=== PATIENT | female | born 1985 ===

== ENCOUNTER 2025-04-08 18:03 | Outpatient (REF) | payer OTHER, SELFPAY ==
--- OUTSIDE RECORDS SUMMARY | 2025-04-08 09:30 | XMS_ITS | Encounter Summary ---
Author Organization [email or web address] Address [address] [facility] [address] [facility] [address] [facility] [address] [place] [address] Care Team Providers Care Firefighting Equipment Specialist Name Role Phone Lisa Curry NP Primary Care Provider [phone] Reason for Visit * Reason Comments New patient Encounter Details Date Type Department Care Team ([facility] st Contact Info) Description 04/08/2025 9:30 AM EST Office Visit [facility] MED[facility]INE [address] [place] [address] Lisa Curry NP [address] [place] [address] Encounter to establish care with new provider (Primary Dx); Chronic migraine without aura without status migrainosus, not intractable; Vaginal bleeding; Palpitations; Menorrhagia with regular cycle; History of tuberculosis Social History Tobacco Use Types Packs/Day Years Used Date Smoking Tobacco: Never Passive Smoke Exposure: Never Smokeless Tobacco: Never Alcohol Use Standard Drinks/Week Comments Never 0 (1 standard drink = 0.6 oz pur e alcohol) Alcohol Answer Date Recorded How often do you have a drink containing alcohol ? 1 04/08/2025 How many drinks containing a lcohol do you have on a typical day when you are drinking? 0 04/08/2025 How often do you have six or more drinks on one occasion? 0 04/08/2025 Depression Answer Date Recorded Patient Health Questionnaire-9 Score 0 04/08/2025 Patient Health Questionnaire-9 Score 0 04/08/2025 Last PHQ-9: Questionnaire Data Not on file 1 06/08/2024 Housing Stability Answer Date Recorded What is your housing situation today? I have katlin singleton 04/08/[address] you li ve. Do you have problems with any of the following? Pests such as bugs, ants, or mice 04/08/2025 Food Insecurity Answer Date Recorded Within the past 12 months, y ou worried that your food would run out before you got money to buy more: Never True 04/08/2025 Within the past 12 months,th e food you bought just didn't last and you didn't have enough money to get more: Never True Transportation Answer Date Recorded In the past 12 months, has l ack of transportation kept you from medical appts, meetings, work or from getting things needed for daily living? No 04/08/2025 Utilities Answer Date Recorded In the past 12 months, has t he electric, gas, oil or water company threatened to shut off services in your home? No 04/08/2025 Depression Answer Date Recorded Patient Health Questionnaire-2 Score 0 04/08/2025 Internet Access Answer Date Recorded Internet Access Q1 Yes 04/08/2025 Internet Access Q2 Not on file 04/08/2025 Comments Unknown Sex and Gender Information Value Date Recorded Sex Assigned at Female 05/17/2022 1:03 PM EST Legal Sex Female 3:07 PM EST Gender Identity Female 05/17/2022 1:03 PM EST Sexual Orientation Straight 07/20/2022 4: 38 PM EST Occupation Industry Job Start Date Job End Date Not on file Not on file Not on file Not on file documented as of this encounter Last Filed Vital Signs Vital Sign Reading Time Taken Comments Blood Pressure 120/82 04/08/2025 9:29 AM EST Pulse 92 04/08/2025 9:29 AM EST Temperature 37.6 C (99.6 F) 04/08/2025 9:29 AM EST Respiratory Rate 23 04/08/2025 9:29 AM EST Oxygen Saturation 99% 04/08/2025 9:29 AM EST Inhaled Oxygen Concentration - - Weight 71.5 kg (157 lb 9.6 oz) 04/08/2025 9:29 A M EST Height 154.9 cm (5' 1 ) 04/08/2025 9:29 AM EST Body Mass Index 29.78 04/08/2025 9:29 AM EST documented in this encounter Functional Status * Over the past 2 weeks, how often have you been bothered by any of the following problems? Question Answer Date of Assessment Author Patient Health Questionnaire -2 Score 0 04/08/2025 10:59 AM John Paul De Leon MA * Little interest or pleasure in doing things Answer Date of Assessment Author Not at all 04/08/2025 10:59 AM John Paul De Leon MA * Feeling down, depressed, or hopeless Answer Date of Assessment Author Not at all 04/08/2025 10:59 AM John Paul De Leon MA * Trouble falling or staying asleep, or sleeping too much Answer Date of Assessment Author Not at all 04/08/2025 10:59 AM John Paul De Leon MA * Feeling tired or having little energy Answer Date of Assessment Author Not at all 04/08/2025 10:59 AM John Paul De Leon MA * Poor appetite or overeating Answer Date of Assessment Author Not at all 04/08/2025 10:59 AM John Paul De Leon MA * Feeling bad about yourself - or that you are a failure or have let yourself or your family down Answer Date of Assessment Author Not at all 04/08/2025 10:59 AM John Paul De Leon MA * Trouble concentrating on things, such as reading the newspaper or watching television Answer Date of Assessment Author Not at all 04/08/2025 10:59 AM John Paul De Leon MA * Moving or speaking so slowly that other people could have noticed? Or the opposite - being so fidgety or restless that you have been moving around a lot more than usual. Answer Date of Assessment Author Not at all 04/08/2025 10:59 AM John Paul De Leon MA * Thoughts that you would be better off or hurting yourself in some way Answer Date of Assessment Author Not at all 04/08/2025 10:59 AM John Paul De Leon MA * Patient Health Questionnaire-9 Score Answer Date of Assessment Author 0 04/08/2025 10:59 AM John Paul De Leon MA * Over the last 2 weeks, how often have you been bothered by any of the following problems? Question Answer Date of Assessment Author Feeling nervous, anxious, or on edge 0 04/08/2025 10:58 AM John Paul De Leon MA Not being able to stop or co ntrol worrying 0 04/08/2025 10:58 AM John Paul De Leon MA Worrying too much about diff erent things 0 04/08/2025 10:58 AM John Paul De Leon MA Trouble relaxing 0 04/08/2025 10:58 AM John Paul De Leon MA Being so restless that it is hard to sit still 0 04/08/2025 10:58 AM John Paul De Leon MA Becoming easily annoyed or irritable 0 04/08/2025 10:58 AM John Paul De Leon MA Feeling afraid as if somethi ng awful might happen 1 04/08/2025 10:58 AM John Paul De Leon MA SERGIO-7 Total Score 1 04/08/2025 10:58 AM John Paul De Leon MA documented as of this encounter Progress Notes * Lisa Curry NP - 04/08/2025 9:30 AM EST Subjective Patient ID: Cherelle Weiner is a 39 y.o. female who presents for new patient visit. Denies recent illness, injury or hospitalization. Previous PCP [facility], [place], [place]. HPI Cherelle is here to establish care. Has several complaints as she has not received primary care in some time. Patient understands not all complaints can be addressed today Concerns: 1) Headaches: light bothers, sounds bother; frontal or temporal; nausea, no vomiting; rates greaterthan 10. Occurs at random, sometimes before or after monthly. Denies visual disturbance, or confusion with theadaches. Was once prescribed amitriptyline which she is unsure if helpful as she still had headaches when taking. Took med short term before becoming and discontinuing the med. Tylenol or ibuprofen does not help 2) Experiences palpitations at times. Ongoing for some time now. 3) Wants full check up due to lack of care following incomplete TB treatment 4) Notes blood on toilet paper with wiping that started 4 days ago; no sexual intercourse in several months Was being treated for latent TB but stopped when she was and moved here. PMHx: Medical History[1] PsurgHX: Surgical History[2] Allergies: Allergies[3] Medication: see reviewed list Social Hx: Tobacco Use: Low Risk (04/08/2025) Tobacco Smoking Tobacco Use: Never Smokeless Tobacco Use: Never Passive Exposure: Never Alcohol Use: Not At Risk (04/08/2025) Alcohol Frequency of Alcohol Consumption: 1 Average Number of Drinks: 0 Frequency of Binge Drinkin Living situation: lives with father, and 4 children Employment/Education: works at [employer] Diet: traditional foods; fried foods; drinks soda, water Exercise: sedentary Substance use: denies Sexual activity: Male partner Last period: Patient's last menstrual period was 03/28/2025 (exact date). Heavy, clots; 3 pads in 8hrs control method: none OB Hx: OB History Para Term AB Living 4 0 0 0 0 4 SAB IAB Ectopic Multiple Live Births 0 0 0 0 0 Mental health: good Routine Health Maintenance Optometry: denies vision disturbance; has itchy eyes; no recent eye exam Dental: not established with dental home. Brushes two or three times per day Cervical CA: reports last pap 2023; unsure of results; Kaitlyn Swartz Outstanding IZ: immunization record to be obtained Family History[4] Review of Systems Constitutional: Negative. Negative for chills and fever. Respiratory: Negative for chest tightness and shortness of breath. Cardiovascular: Positive for palpitations. Negative for chest pain. Gastrointestinal: Negative for abdominal pain, constipation, diarrhea and nausea. Genitourinary: Positive for vaginal bleeding. Negative for dysuria. Musculoskeletal: Negative for arthralgias, back pain, myalgias and neck pain. Skin: Negative. Negative for rash. Neurological: Positive for headaches. Negative for weakness and light-headedness. Psychiatric/Behavioral: Negative for behavioral problems, confusion, decreased concentration and suicidal ideas. Objective: Visit Vitals BP 120/82 (BP Location: Left arm, Patient Position: Sitting, BP Cuff Size: Large adult) Pulse 92 Temp 99.6 ??F (37.6 ??C) (Oral) Resp 23 Ht 5' 1 (1.549 m) Wt 157 lb 9.6 oz (71.5 kg) LMP 03/28/2025 (Exact Date) SpO2 99% BMI 29.78 kg/m?? OB Status Unknown Smoking Status Never BSA 1.75 m?? Problem List[5] Current Medications[6] There is no immunization history on file for this patient. Physical Exam Vitals reviewed. Constitutional: General: She is not in acute distress. Appearance: Normal appearance. She is not ill-appearing. HENT: Head: Normocephalic and atraumatic. Right Ear: External ear normal. Left Ear: External ear normal. Nose: Nose normal. Eyes: General: No scleral icterus. Extraocular Movements: Extraocular movements intact. Cardiovascular: Rate and Rhythm: Normal rate and regular rhythm. Pulses: Normal pulses. Heart sounds: Normal heart sounds. Pulmonary: Effort: Pulmonary effort is normal. No respiratory distress. Breath sounds: Normal breath sounds. Musculoskeletal: General: Normal range of motion. Cervical back: Normal range of motion. Neurological: General: No focal deficit present. Mental Status: She is alert and oriented to person, place, and time. Gait: Gait normal. Psychiatric: Mood and Affect: Mood normal. Behavior: Behavior normal. Assessment & Plan Encounter to establish care with new provider -patient is new to [facility] -personal medical, surgical, and medication histories reviewed along with family hx -routine health maintenance discussed - will obtain and review medical record from previous care facility Chronic migraine without aura without status migrainosus, not intractable -headache description suggestive of migraine -discussed trial of sumatriptan with naproxen -patient is agreeable to amitriptyline for prevention -headache red flags discussed: report to ED immediately if headache characteristics intensify within 5 mins of onset, if associated with intense nausea and vomiting or confusion -recommend headache diary -follow-up 1 month Orders: SUMAtriptan (Imitrex) 25 MG tablet; Take 1 tablet (25 mg) by mouth 1 (one) time if needed for migraine. May repeat dose once in 2 hours if no relief. Do not exceed 2 doses in 24 hours. naproxen (Naprosyn) 500 MG tablet; Take 1 tablet (500 mg) by mouth 2 times daily. amitriptyline (Elavil) 10 MG tablet; Take 1 tablet (10 mg) by mouth at bedtime. Vaginal bleeding Orders: Bacterial Vaginosis, Yeast and Trich; Future Chlamydia/N. Gonorrhoeae RNA, TMA, Vagina Palpitations -labs ordered for work up -further evaluation at follow-up Menorrhagia with regular cycle -will evaluate further at follow-up History of tuberculosis -incomplete treatment for latent TB by ID at previous care center -will determine need for further treatment following MR review Follow-up: 1 month or sooner as needed Belarusian Creole Translation: Provided by [facility] staff member Rosetta [1] Past Medical History: Diagnosis Date Headache Helicobacter pylori gastritis 2021 completed treatment Latent tuberculosis 2022 [2] Past Surgical History: Procedure Laterality Date SECTION, CLASSIC 2023 [3] No Known Allergies [4] Family History Problem Relation Name Age of Onset No Known Problems Mother No Known Problems Father [5] Patient Active Problem List Diagnosis Headache [6] Current Outpatient Medications: amitriptyline (Elavil) 10 MG tablet, Take 1 tablet (10 mg) by mouth at bedtime., Disp: 30 tablet, Rfl: 2 naproxen (Naprosyn) 500 MG tablet, Take 1 tablet (500 mg) by mouth 2 times daily., Disp: 60 tablet,Rfl: 1 SUMAtriptan (Imitrex) 25 MG tablet, Take 1 tablet (25 mg) by mouth 1 (one) time if needed for migraine. May repeat dose once in 2 hours if no relief. Do not exceed 2 doses in 24 hours., Disp: 9 tablet, Rfl: 1 documented in this encounter Plan of Treatment Upcoming Encounters Date Type Department Care Team (Late st Contact Info) Description 05/06/2025 9:15 AM EST Office Visit [facility] MEDICINE [address] [place] [address] Lisa Curry NP [address] [place] [address] Scheduled Orders Name Type Priority Associated Diagnoses Orde r Schedule Bacterial Vaginosis, Yeast and Trich Microbiology Routine Vaginal bleeding Expected: 04/08/2025 (Approximate), Expires: 04/08/2026 Chlamydia/N. Gonorrhoeae RNA, TMA, Vagina Microbiology Routine Vaginal bleeding Ordered: 04/08/2025 CBC auto differential Lab Routine Palpitations Menorrhagia with regular cycle Expected: 04/08/2025 (Approximate), Expires: 04/08/2026 TSH W/Reflex to FT4 Lab Routine Palpitations Menorrhagia with regular cycle Expected: 04/08/2025 (Approximate), Expires: 04/08/2026 documented as of this encounter Visit Diagnoses Diagnosis Encounter to establish care with new provider- Primary Chronic migraine without aura without status migrainosus, not intractable Vaginal bleeding Other specified noninflammatory disorder of vagina Palpitations Menorrhagia with regular cycle History of tuberculosis Personal history of tuberculosis documented in this encounter Additional Health Concerns Assessment Noted Time PHQ-9 Depression Total Score: 0 04/08/20 10:59 AM EST documented as of this encounter Care Teams Firefighting Equipment Specialist Relationship Specialty Start Date End Date Lisa Curry NP [address] [place] [id number] PCP - General Family Medicine 04/08/25 documented as of this encounter
--- OUTSIDE RECORDS SUMMARY | 2025-04-08 19:02 | XMS_ITS | Encounter Summary ---
Author Organization [employer] Address [address] [place] [address] Care Team Providers Care Stab Setter And Driller Name Role Phone Lisa Curry NP Primary Care Provider [phone] Encounter Details Date Type Department Care Team (Latest Contact Info) Description 04/08/2025 Travel Social History Tobacco Use Types Packs/Day Years [...] on file documented as of this encounter Functional Status * Over the [...] Leon MA documented as of this encounter Plan of Treatment Upcoming Encounters Date Type Department Care Team (Late st Contact Info) Description 05/06/2025 9:15 AM EST Office Visit [facility] [address] [place] [address] Lisa Curry NP [address] [place] [address] documented as of this encounter Visit Diagnoses Not on filedocumented in this encounter Additional Health Concerns Assessment Noted Time PHQ-9 Depression Total Score: 0 04/08/20 10:59 AM EST documented as of this encounter Care Teams Stab Setter And Driller Relationship Specialty Start Date End Date Lisa Curry NP [address] [place] [address] PCP - General Family Medicine 04/08/25 documented as of this encounter
--- OUTSIDE RECORDS SUMMARY | 2025-04-08 19:03 | XMS_ITS | Clinical Summary ---
Author Organization [employer] Address [address] [facility] [address] [place] [address] Care Team Providers Care Board Of Directors Name Role Phone Lisa Curry NP Primary Care Provider [phone] Allergies No known active allergies Medications SUMAtriptan (Imitrex) 25 MG tabletIndicatio ns:Chronic migraine without aura without status migrainosus, not intractable Take 1 tablet (25 mg) by mouth 1 (one) time if needed for migraine. May repeat dose once in 2 hours if no relief. Do not exceed 2 doses in 24 hours. 9 tablet 1 04/08/2025 12:09 PM EST 04/08/20 25 Active naproxen (Naprosyn) 500 MG tabletIndicatio ns:Chronic migraine without aura without status migrainosus, not intractable Take 1 tablet (500 mg) by mouth 2 times daily. 60 tablet 1 04/08/2025 12:09 PM EST 04/08/20 25 026 Active amitriptyline (Elavil) 10 MG tabletIndicatio ns:Chronic migraine without aura without status migrainosus, not intractable Take 1 tablet (10 mg) by mouth at bedtime. 30 tablet 2 04/08/2025 12:09 PM EST 04/08/20 25 026 Active amitriptyline (Elavil) 10 MG tabletIndicatio ns:Migraine without aura and without status migrainosus, not intractable Take 1 tablet (10 mg) by mouth at bedtime. 30 tablet 2 08/23/2022 1:47 PM EDT 08/23/19 23 025 Discontinued(Re order (will not trigger notification to Pharmacy)) Active Problems Problem Noted Date Diagnosed Date Headache 05/17/2022 Encounters Date Type Department Care Team Description 04/08/2025 9:30 AM EST Office Visit [facility] MEDICINE [address] [place] [address] Lisa Curry NP Encounter to establish care with new provider (Primary Dx); Chronic migraine without aura without status migrainosus, not intractable; Vaginal bleeding; Palpitations; Menorrhagia with regular cycle; History of tuberculosis 04/08/2025 Travel 04/01/2025 Patient Outreach [facility] [address] [place] [address] Debra Oconnor NP Pre-visit Planning ([facility] unable to reach [facility] ) from Last 3 Months Family History Medical History Relation Name Comments No Known Problems Father No Known Problems Mother Relation Name Status Comments Father Alive Mother Alive Social History Tobacco Use Types Packs/Day Years Used Date Smoking Tobacco: Never Passive Smoke Exposure: Never Smokeless Tobacco: Never Tobacco Cessation:Counseling Given: Not Answered Alcohol Use Standard Drinks/Week Comments Never 0 [...] file Not on file Not on file Last Filed Vital Signs Vital Sign Reading [...] Mass Index 29.78 04/08/2025 9:29 AM EST Plan of Treatment Upcoming Encounters Date Type Department Care Team (Late st Contact Info) Description 05/06/2025 9:15 AM EST Office Visit [facility] MED[facility] [address] [place], [place] [phone] Lisa Curry NP [address] [place] [address] Health Maintenance Due Date Last Done Comments Family Planning (PISQ) 10/01/2002 HPV Vaccines (1 - 3-dose series) 10/01/2002 DTaP/Tdap/Td Vaccines (1 - Tdap) 10/01/2006 Hepatitis B Vaccines (1 of 3 - 19+ 3-dose series) 10/01/2006 Pap Smear 10/01/2008 Cervical Cancer Screening 10/01/2017 HPV/Cotest 10/01/2017 COVID-19 Vaccine (1 - 2024-2 6 season) 2025 Influenza Vaccine (#1) 2025 Alcohol/Substance Use Screening 04/08/2026 04/08/2025 Depression Screening 04/08/2026 04/08/2025, 04/08/2025 Disability Screening 04/08/2026 04/08/2025 SDOH Screening 04/08/2026 04/08/2025 Tobacco Screening 04/08/2026 04/08/2025 Zoster Vaccines (1 of 2) 10/01/2037 RSV Patients and Patients Aged 60 years or older (1 - 1-dose 75+ series) 10/01/2062 HIV Screening Completed 05/17/2022 Hepatitis C Screening Completed 05/17/2022 HIB Vaccines Aged Out No longer eligi ble based on patient's age to complete this topic Hepatitis A Vaccines Aged Out No long er eligible based on patient's age to complete this topic IPV Vaccines Aged Out No longer eligi ble based on patient's age to complete this topic Meningococcal B Vaccine Aged Out No l onger eligible based on patient's age to complete this topic Meningococcal Vaccine Aged Out No rey isa eligible based on patient's age to complete this topic Pneumococcal Vaccine: Pediatrics (0 to 5 Years) and At-Risk Patients (6 to 49) Years Aged Out No longer eligible b ased on patient's age to complete this topic RSV under 20 months Aged Out No longe r eligible based on patient's age to complete this topic Rotavirus Vaccines Aged Out No longer eligible based on patient's age to complete this topic Procedures Procedure Name Priority Date/Time Associated Diagnosis Comments HEPATITIS C AB W/REFL TO HCV RNA, QN, PCR Routine 05/17/2022 3:41 PM EST Encounter for medical examination to establish care HIV 1/2 ANTIGEN/ANTIBODY, FOURTH GENERATION W/RFL Routine 05/17/2022 3:41 PM EST Encounter for medical examination to establish care from Last 3 Months or Most Recently Relevant to Health Maintenance Results * Hepatitis C Antibody with Reflex to HCV, RNA, Quantitative, Real-Time PCR (05/17/2022 3:41 PM EST) Hepatitis C Antibody NON-REACT PAULETTE NON-REACT PAULETTE [facility] [place] [employer] Index 0.08 <1.00 [facility] Comment: HCV antibody was non-reactive. There is no laboratory evidence of HCV infection. In most cases, no further action is required. However, if recent HCV exposure is suspected, a test for HCV RNA (test code 90031) is suggested. For additional information please refer to http://[employer].Epos/faq/OJW97e8 (This link is being provided for informational/ educational purposes only.) Blood Venous blood specimen / Unknown 05/17/2022 3:41 PM EST 05/18/2022 8:00 AM EST Debra Oconnor EMERGENCY MEDICINE SPECIALIST LAB BLOOD ORDERABLES nal Result [facility] [address] [facility], [place] [address] [facility]overed [place] [employer] [address], ([address]) [place] [address] * HIV-1/2 Antigen and Antibodies, Fourth Generation, with Reflexes (05/17/2022 3:41 PM EST) Pathologist [facility] HIV Antigen/Antibody, 4th Generation NON-REAC TIVE NON-REAC TIVE [facility]overed [place] [employer] Comment: HIV-1 antigen and HIV-1/HIV-2 antibodies were not detected. There is no laboratory evidence of HIV infection. PLEASE NOTE: This information has been disclosed to you from records whose confidentiality may be protected by state law. If your state requires such protection, then the state law prohibits you from making any further disclosure of the information without the specific written consent of the person to whom it pertains, or as otherwise permitted by law. A general authorization for the release of medical or other information is NOT sufficient for this purpose. For additional information please refer to http://education.Epos/faq/JQD316 (This link is being provided for informational/ educational purposes only.) The performance of this assay has not been clinically validated in patients less than 2 years old. Blood Venous blood specimen / Unknown 05/17/2022 3:41 PM EST 05/18/2022 8:00 AM EST Debra Oconnor NP LAB BLOOD ORDERABLES Fi nal Result [facility] [address] [facility], [place] [address] [facility]overed [facility] [address], ([address]) [place] [address] from Last 3 Months or Most Recently Relevant to Health Maintenance Insurance * Guarantor: Cherelle Tracy Account Type Relation to Patient Date of Phone Billing Address Personal/Family Self 1985 [address] [place] [address] [facility] * Guarantor: Cherelle Tracy Account Type Relation to Patient Date of Phone Billing Address Personal/Family Self [address] [place] [address] * Guarantor: Cherelle Tracy Account Type Relation to Patient Date of Phone Billing Address Personal/Family Self [address] [place] [address] Care Teams Board Of Directors Relationship Specialty Start Date End Date Lisa Curry NP [address] [place] [id number] PCP - General Family Medicine 04/08/25
[2025-04-09 01:06] LABS: Bacterial Vaginosis PCR POSITIVE (Negative); Candida Group PCR DETECTED (Not Detect); Candida glab krusei PCR NOT DETECTED (Not Detect); Trichomonas vaginalis PCR NOT DETECTED (Not Detect)
[2025-04-09 01:36] LABS: CT PCR NOT DETECTED (Not Detect.); NG PCR NOT DETECTED (Not Detect.)
== END 2025-04-08 18:04 | disposition home or self-care (01) ==
LOC: HO.HHCLNP 18:03
PROVIDERS: Visit Provider Nurse Practitioner
DX: Z20.2 Contact with and (suspected) exposure to infections with a predominantly sexual mode of transmission (principal); N93.9 Abnormal uterine and vaginal bleeding, unspecified
CPT/HCPCS: 81515; 87491; 87591

== ENCOUNTER 2025-05-06 10:31 | Outpatient (REF) | payer MEDICAID, OTHER, SELFPAY ==
--- NOTE | ~2025-05-06 | XR_ITS ---
EXAMINATION: XR CHEST 2 VIEWS HISTORY: hx of positive TB test COMPARISON: There are no prior studies available for comparison. FINDINGS: PA and lateral views of the chest are submitted. The lungs are expanded and clear. There is no pleural effusion, pneumothorax, or pulmonary vascular congestion. The heart is normal in size. The bones are intact. XR/XR chest 2V IMPRESSION: Normal examination of the chest. Electronically signed by: Jeremy Steiner MD 05/06/2025 01:42 PM [facility]
[2025-05-06 13:59] LABS: MANUAL DIFF FLAG NO
[2025-05-06 14:03] LABS: Hematocrit 40.9 % (37.0-47.0); Hemoglobin 13.8 g/dl (12.0-16.0); Imm Gran Abs Auto 0.02 X10*3/uL (0.00-0.03); Imm Gran Pct Auto 0.4 % (0.0-0.4); Lymphocytes Absolute Auto 1.8 X10*3/uL (1.2-4.9); Mean Corpuscular HGB Conc 33.7 g/dl (31.0-35.0); Mean Corpuscular Hemoglobin 27.3 pg (27.0-33.0); Mean Corpuscular Volume 80.8 fL (80.0-98.0); NRBC Abs Auto 0.000 X10*3/uL (0.0-0.012); NRBC Pct Auto 0.0 /100WBC (0.0-0.2); Platelet Count 294 X10*3/uL (160-400); Red Blood Count 5.06 X10*6/uL (4.20-5.50); White Blood Count 5.5 X10*3/uL (4.8-10.8)
[2025-05-06 14:24] LABS: Anion Gap 10 (12-20); Blood Urea Nitrogen 10 mg/dL (9-16); Calcium 9.2 mg/dL (8.4-10.2); Carbon Dioxide 26 mmol/L (22-29); Chloride 108 mmol/L (96-108); Cholesterol 214 mg/dL (<200); Estimated Glomerular Filt Rate > 60; HDL Cholesterol 49 mg/dL (>40); Potassium 3.9 mmol/L (3.3-5.1); Sodium 140 mmol/L (135-145); Triglycerides 60 mg/dL (<150)
== END 2025-05-06 10:32 | disposition home or self-care (01) ==
LOC: HO.HHCL 10:31
PROVIDERS: PCP Nurse Practitioner; Visit Provider Nurse Practitioner
DX: N92.0 Excessive and frequent menstruation with regular cycle (principal); E66.811 Obesity, class 1; Z68.30 Body mass index [BMI] 30.0-30.9, adult; R00.2 Palpitations; Z86.11 Personal history of tuberculosis
CPT/HCPCS: 36415; 71046; 80048; 80061; 84443; 85025

== ENCOUNTER → 2025-05-06 11:33 | Outpatient (BNV) | payer OTHER, SELFPAY | PROVIDERS: PCP Nurse Practitioner; Visit Provider Radiology Diagnostic Radiology | DX: Z86.11 Personal history of tuberculosis (principal) | CPT/HCPCS: 71046 ==